=== PATIENT | female | born 2005 | race Caucasian/White ===

== ENCOUNTER 2023-06-11 02:40 | Emergency (ER) | payer MEDICAID ==
[~2023-06-11] VITALS: Ht 162.6 cm; Wt 107.0 kg
[2023-06-11 02:49] VITALS: O2SAT 100
[2023-06-11] MEDS ORDERED: KETOROLAC 30MG/ML VIAL IV ONE (03:15)
[2023-06-11] MEDS ORDERED: SODIUM CHLORIDE 0.9% 1,000 ML IV ONE (03:15)
[2023-06-11 03:39] LABS: BASOPHILS % 0.5 % (0.0-2.0); EOSINOPHILS % 1.3 % (0.0-5.0); HEMOGLOBIN. 14.1 g/dL (12.0-16.0); LYMPHOCYTES % 33.1 % (20.0-50.0); MEAN CORPUSCULAR HEMOGLOBIN 29.8 pg (28.0-32.0); MEAN CORPUSCULAR HGB CONC 34.5 g/dL (31.0-37.0); MEAN CORPUSCULAR VOLUME 86.5 fL (81.0-99.0); MEAN PLATELET VOLUME 8.3 fl (7.4-10.4); MONOCYTES % 7.9 % (2.0-8.0); NEUTROPHILS % 57.2 % (40.0-76.0); PLATELET 272 x1000/uL (130-400); RED BLOOD CELL COUNT 4.74 mill/uL (4.2-5.4); WHITE BLOOD COUNT 10.1 x1000/uL (4.5-11.0)
[2023-06-11 03:51] LABS: HCG SCREEN NEGATIVE
[2023-06-11 04:10] LABS: ALANINE AMINOTRANSFERASE 11 IU/L (10-49); ALBUMIN 4.3 g/dL (3.2-4.8); ASPARTATE AMINOTRANSFERASE 11 IU/L (<34); BILIRUBIN TOTAL 0.4 mg/dL (0.1-1.0); CALCIUM 9.3 mg/dL (8.7-10.4); CARBON DIOXIDE 23 mEq/L (21-32); CHLORIDE 106 mEq/L (98-107); CREATININE 0.7 mg/dL (0.6-1.0); GLUCOSE 107 mg/dL (70-105); POTASSIUM 3.9 mEq/L (3.5-5.1); SODIUM 138 mEq/L (136-145); UREA NITROGEN BLOOD 12 mg/dL (9-23)
[2023-06-11 05:26] LABS: B-HCG QUANTITATIVE < 1 mIU/mL (<3)
[2023-06-11] MEDS ORDERED: NAPR220C61 MT (05:49)
[2023-06-11] MEDS ORDERED: KETOROLAC 30MG/ML VIAL IV NR (06:30)
[2023-06-11 07:08] VITALS: BP 126/92; PULSE 99; RESP 26; TEMP 98.7
== END 2023-06-11 08:12 | disposition home or self-care (01) ==
LOC: ER 02:40
DX: N83.201 Unspecified ovarian cyst, right side (principal); I10 Essential (primary) hypertension; Z00.00 Encounter for general adult medical examination without abnormal findings
CPT/HCPCS: 80053; 81025; 84703; 84702; 85025; 86850; 86900; 86901; 36415; 76830; 76856; 96361; 96374; 99285; J1885; J7030; Z7610 ×4